=== PATIENT | female | born 2005 | race Caucasian/White ===

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

== ENCOUNTER 2023-05-26 19:07 | Emergency (ER) | payer BC, MEDICAID ==
[2023-05-26 19:42] LABS: BILIRUBIN,URINE NEGATIVE (NEGATIVE); COLOR,URINE YELLOW; GLUCOSE,URINE NEGATIVE (NEGATIVE); KETONES,URINE NEGATIVE (NEGATIVE); LEUKOCYTE ESTERASE,URINE SMALL (NEGATIVE); NITRITE,URINE NEGATIVE (NEGATIVE); OCCULT BLOOD,URINE TRACE-INTACT (NEGATIVE); PROTEIN,URINE NEGATIVE (NEGATIVE); UROBILINOGEN,URINE 0.2 EU/dL (<2.0)
[2023-05-26 20:09] LABS: APPEARANCE,URINE HAZY
[2023-05-26 20:10] LABS: BACTERIA,URINE FEW (NEGATIVE); EPITHELIAL CELLS,URINE RARE (NONE-FEW); RBC,URINE 0-2 (0-2/HPF)
[2023-05-26] MEDS: Sodium Chloride 0.9% 1,000 ML IV ONE (20:12)
[2023-05-26 20:26] LABS: BASOPHILS ABSOLUTE AUTO 0.02 K/uL (0.00-0.30); BASOPHILS PERCENT AUTO 0.2 % (0.0-1.0); HEMATOCRIT 36.9 % (37.0-47.0); HEMOGLOBIN 11.2 g/dL (12.0-16.0); IMMATURE GRAN ABSOLUTE AUTO 0.05 K/uL (0.00-0.05); IMMATURE GRAN PERCENT AUTO 0.4 % (0.0-0.4); LYMPHOCYTES ABSOLUTE AUTO 0.82 K/uL (2.00-8.80); LYMPHOCYTES PERCENT AUTO 6.7 % (50.0-65.0); MEAN CORPUSCULAR HEMOGLOBIN 20.5 pg (28.0-32.0); MEAN CORPUSCULAR HGB CONC 30.4 g/dL (32.0-36.0); MEAN PLATELET VOLUME 10.1 fL (9.4-12.3); MONOCYTES ABSOLUTE AUTO 1.39 K/uL (0.10-1.40); MONOCYTES PERCENT AUTO 11.4 % (2.0-10.0); NEUTROPHILS ABSOLUTE AUTO 9.96 K/uL (1.50-8.50); NEUTROPHILS PERCENT AUTO 81.3 % (35.0-45.0); PLATELET COUNT,PLT 334 K/uL (150-400); RED BLOOD CELL COUNT 5.47 M/uL (4.10-5.30); WHITE BLOOD CELL COUNT,WBC 12.24 K/uL (4.5-13.5)
[2023-05-26 21:03] LABS: ALBUMIN 3.9 g/dL (3.4-5.0); BILIRUBIN TOTAL 0.3 mg/dL (0.2-1.0); CARBON DIOXIDE,CO2 22.9 mmol/L (21.0-32.0); CREATININE 0.8 mg/dL (0.6-1.0); EST CRCL DRUG DOSING (CG) 97.67 mL/min; POTASSIUM,K 3.5 mmol/L (3.5-5.1); PROTEIN TOTAL,TP 8.5 g/dL (6.4-8.2)
[2023-05-26 21:09] LABS: A/G RATIO 0.9 (0.9-1.6)
[2023-05-26 21:30] LABS: MEAN CORPUSCULAR VOLUME 67.5 fL (83.0-99.0)
[2023-05-26] MEDS: Cephalexin 500 MG Cap PO ONE (21:30)
== END 2023-05-26 21:34 | disposition home or self-care (01) ==
LOC: MW.ED 19:07
DX: O23.40 Unspecified infection of urinary tract in pregnancy, unspecified trimester (principal); N39.0 Urinary tract infection, site not specified; Z3A.00 Weeks of gestation of pregnancy not specified
CPT/HCPCS: 36415; 80053; 81001; 81025; 84702; 85025; 87086; 96360; 99283; A9270; J7030

== ENCOUNTER 2024-07-31 15:42 | Emergency (ER) | payer BC, MEDICAID ==
[2024-07-31] MEDS: Amoxicillin/Clavulanate K 875-125 MG Tab PO ONE (16:05)
== END 2024-07-31 16:06 | disposition home or self-care (01) ==
LOC: MW.ED 15:42
DX: H66.91 Otitis media, unspecified, right ear (principal); Z79.899 Other long term (current) drug therapy
CPT/HCPCS: 99282; A9270

== ENCOUNTER 2024-12-25 12:40 | Emergency (ER) | payer BC, MEDICAID | END 2024-12-25 13:33 | disposition home or self-care (01) | LOC: MW.ED 12:40 | DX: H66.002 Acute suppurative otitis media without spontaneous rupture of ear drum, left ear (principal); Z79.899 Other long term (current) drug therapy | CPT/HCPCS: 99283 ==